=== PATIENT | female | born 1960 | race Caucasian/White ===

== ENCOUNTER 2021-04-15 18:35 | Inpatient (IN) | payer SELFPAY ==
[2021-04-15 18:36] VITALS: BP 89/65; PULSE 85; RESP 20; TEMP 37.3; O2SAT 93; BMI 27.8
--- NOTE | 2021-04-15 18:50 | EKG12_ITS ---
Test Reason : CP Blood Pressure : / mmHG Vent. Rate : 085 BPM Atrial Rate : 085 BPM P-R Int : 168 ms QRS Dur : 076 ms QT Int : 378 ms P-R-T Axes : 054 024 051 degrees QTc Int : 449 ms Normal sinus rhythm Normal ECG Confirmed by LINDA FULLER, KATARINA ([id number]), script editor JO ANN BREWSTER ([id number]) on 04/19/2021 9:44:44 AM Referred By: Michael Siegel Confirmed By:RUSLAN MCKEON MD
--- NOTE | 2021-04-15 19:14 | RAD_ITS ---
STUDY: XR Chest 1 View 04/15/2021 7:14 PM REASON FOR EXAM: Female, 60 years old. CHEST PAIN SOB COMPARISON: None TECHNIQUE: XR Chest 1 View FINDINGS: There is no demonstrated pleural abnormality. There is bilateral infiltrate / atelectasis. Normal heart size. Normal mediastinum. Normal rolando. Prominent appearing increased interstitial lung markings. Normal visualized pulmonary arteries. There is atherosclerotic calcification of the aortic arch with tortuosity. There are diffuse degenerative changes of the visualized thoracic spine. There is degenerative osteoarthritis of the bilateral shoulders. There is no demonstrated abnormality of the visualized soft tissue structures of the upper abdomen. RAD/Chest 1 View (Portable) IMPRESSION: Bilateral pneumonia. Electronically Signed: Gallo Figueredo MD at 19:51 EST , Service support ,
[2021-04-15 19:18] VITALS: BP 117/73; PULSE 78; RESP 23; RESP 24; O2SAT 88; O2SAT 94
[2021-04-15 19:19] VITALS: O2SAT 95
[2021-04-15 19:34] LABS: Absolute Lymphocyte Count 1.16 X10^3/uL (0.83-4.51); Absolute Neutrophil Count 3.4 X10^3/uL (2.0-7.7); Basophil# 0.01 X10^3/uL; Basophil% 0.2 % (0-1); Hematocrit 45.7 % (37-47); Hemoglobin 15.7 g/dL (12.0-15.0); Lymphocyte # 1.16 X10^3/ul (0.83-4.51); Lymphocyte % 23.9 % (19-41); Mean Corp Hgb Conc 34.4 g/dL (32-36); Mean Corpuscular Hgb 29.5 pg (27.0-32.0); Mean Corpuscular Volume 85.9 fL (81-99); Mean Platelet Vol. 9.6 fl (6.2-12.0); Monocyte# 0.21 X10^3/uL; Monocyte% 4.3 % (0-10); NRBC Flagged by Analyzer 0 % (0-5); Neutrophil # 3.44 X10^3/uL (2.7-7.7); Neutrophil % 70.8 % (47-70); POSITIVE MORPHOLOGY YES; Platelet Count 147 K/mm3 (150-450); RBC Distribution Width CV 12.4 % (11.6-14.6); RBC Distribution Width SD 39.1 fl (35.1-43.9); Red Blood Count 5.32 M/mm3 (4.2-5.4); White Blood Count 4.9 K/mm3 (4.4-11.0)
[2021-04-15 19:51] LABS: Anion Gap 7 (5-15); BUN 13 mg/dL (7-18); BUN/Creat Ratio 17.6 RATIO (10-20); Calcium,Total 8.8 mg/dL (8.5-10.1); Chloride 92 mmol/L (98-107); Creatinine, Serum 0.74 mg/dL (0.55-1.02); EST Glomerular Filtration Rate 85 mL/min (>60); Est Glom Filt Rate - Afr Amer 103 mL/min (>60); Estimated Creatinine Clearance 68.94 ml/min; Glucose 238 mg/dL (74-106); Potassium 4.1 mmol/L (3.5-5.1); Sodium Level 127 mmol/L (136-145)
[2021-04-15 20:01] LABS: Differential Indicated SCAN CRITERIA MET
[2021-04-15 20:09] VITALS: BP 119/78; PULSE 78; RESP 38; O2SAT 92
--- NOTE | 2021-04-15 20:14 | CM.ED ---
SW Note Referral Source: Case Find Referral Reason: No Primary Care Physician (PCP) SW reviewed chart and noted that patient has no PCP. SW provided patient with list of [facility] and [facility] Physician List for reference. . No other issues or concerns voiced at this time. SW remains available for any additional needs. Plan: Provided patient with PCP information Cristy MARTIN
--- NOTE | 2021-04-15 20:24 | EDS_ITS ---
HPI History of Present Illness Chief Complaint: Shortness of Breath Informant: patient and spouse/S.O. Onset/Context/Timing Onset: Days Context: gradual Timing: Continuous Current Severity: Moderate Maximum Severity: Moderate Associated Symptoms cough Narrative Narrative: 60-year-old female had Covid-like symptoms started 8 days ago on 1125. Has had testing done at [facility] on 1130 proving that she was Covid positive. She is unvaccinated. Progressively has been feeling worse and now significantly short of breath and hypoxic and came in the emergency department. She denies nausea or vomiting. No hemoptysis. PE Risk Factors: Negative for Cancer, OCP + Smoking + > 35, Prior DVT or PE, Recent immobilization, Recent surgery and Recent travel Prior similar symptoms: No Recent Illness/Hospitalization: No PFSH PFSH Medical History no medical history no medical history Allergy/AdvReac Type Severity Reaction Status Date / Time No Known Allergies Allergy Verified 04/15/21 18:41 Family History no significant family his Surgical History no surgical history no surgical history Social History Smoking Status: Never smoker ROS ROS ED ROS Narrative Cough, fever, myalgias. Review of Systems ROS Unobtainable: Denies due to encephalopathy Constitutional Constitutional ED: Reports chills and fever(s) Eyes Eyes: Denies change in vision ENT ENT ED: Denies ear pain or sore throat Cardiovascular Cardiovascular: Denies chest pain Respiratory/Chest Respiratory/Chest: Reports cough and dyspnea Gastrointestinal Gastrointestinal: Denies abdominal pain, diarrhea, nausea or vomiting Genitourinary Genitourinary ED: Denies dysuria Musculoskeletal Musculoskeletal: Reports arthralgias and myalgias Integumentary Denies rash Neurologic Neurologic: Denies headache(s) Psychiatric Psychiatric: Denies depression Endocrine Endocrinology: Denies polyuria Hematologic/Lymphatic Hematologic/Lymphatic: Denies easy bruising Allergic/Immunologic Allergic/Immunologic ED: Denies urticaria EXAM Physical Exam Narrative Exam Narrative: 60-year-old female vital signs stable except for pulse in the mid 80s on room air. Hypoxic. HEENT exam unremarkable. Neck nontender. Lungs clear to auscultation bilaterally. Heart regular rhythm no murmur rate about 85. Abdomen soft nontender. Moving all 4 extremities. Calves are nontender without edema or cords. Neurologically she is awake and alert. Patient looks ill not septic. Const Vital Signs: 04/15/21 18:36 04/15/21 19:18 04/15/21 19:19 Temperature 99.1 F Temperature Source Temporal Pulse Rate 85 78 Respiratory Rate 20 H 24 H Respiratory Effort Short of Breath Respiratory Depth Shallow Respiratory Pattern Tachypnea Blood Pressure 89/65 L 117/73 Blood Pressure Mean 73 87 Pulse Ox 93 88 Oxygen Delivery Method Room Air Room Air Nasal Cannula Oxygen Flow Rate (L/min) 2 2 04/15/21 20:09 Temperature Temperature Source Pulse Rate 78 Respiratory Rate 38 H Respiratory Effort Respiratory Depth Respiratory Pattern Blood Pressure 119/78 Blood Pressure Mean 91 Pulse Ox 92 Oxygen Delivery Method Nasal Cannula Oxygen Flow Rate (L/min) 2 Positive well nourished and well developed; Negative for obese, cachectic, contractures or unkempt General Appearance ED: well developed and NAD; Negative for unkempt, cachectic, contractures or pallor Nutritional Appearance: Negative for cachectic or obese HEENT Reports moist mucous membranes atraumatic; Negative for trauma or tenderness Eyes PERRL and EOMs intact bilaterally Neck no lymphadenopathy, supple, no meningeal signs and no JVD Resp clear to auscultation bilaterally Auscultation: Negative for rales, rhonchi or wheezes Cardio regular rate, regular rhythm, S1 normal heart sound, S2 normal heart sound and no murmurs GI non-tender, non-distended and no masses Auscultation: normoactive bowel sounds Palpation: soft; Negative for tender or guarding Back/Spine no CVA tenderness and normal to inspection Extremity normal to inspection General Extremety ED: Negative for edema or tenderness General Extremity: Negative for edema Neuro oriented x3 Sensorium / Orientation: alert, oriented to person, oriented to place and oriented to time; Negative for orientation impaired, confused, lethargic or stuporous Motor Exam: strength 5/5 throughout Psych mental status grossly normal Appearance: Negative for unkempt Thought Process: normal thought process Skin no wounds and skin turgor normal General Skin Exam: Negative for jaundice or pallor Lesions: no lesions Rashes: no rashes MDM MDM MDM Narrative Medical decision making narrative: 60-year-old female hypoxic with Covid. She was started on IV Decadron. I spoke with the hospitalist to admit her. She is also hyponatremic on her labs. Lab Data Attestation: I reviewed the patient's lab results. Lab results narrative: CBC shows a white count of 4.9. Hemoglobin 15. Platelets 147. Electrolytes sodium 127. Gap is 7 normal BUN and creatinine. Glucose 238. Labs: Laboratory Results - last 24 hr 04/15/21 04/15/21 19:05 19:05 WBC 4.9 RBC 5.32 Hgb 15.7 H Hct 45.7 MCV 85.9 MCH 29.5 MCHC 34.4 RDW Std Deviation 39.1 RDW Coeff of Christian 12.4 Plt Count 147 L MPV 9.6 Immature Gran % (Auto) 0.800 Neut % (Auto) 70.8 H Lymph % (Auto) 23.9 [place] % (Auto) 4.3 Eos % (Auto) 0.0 Baso % (Auto) 0.2 Absolute Neuts (auto) 3.4 Absolute Lymphs (auto) 1.16 Nucleated RBC % 0 Sodium 127 L Potassium 4.1 Chloride 92 L Carbon Dioxide 28.0 Anion Gap 7 BUN 13 Creatinine 0.74 Estim Creat Clear Calc 68.94 Est GFR (MDRD) Af Amer 103 Est GFR (MDRD) Non-Af 85 BUN/Creatinine Ratio 17.6 Glucose 238 H Calcium 8.8 Radiography Chest X-Ray - ED: 1 View, Read by ED Physician, Read by Radiologist, Right Infiltrate and Left Infiltrate Diagnostic Testing: Clinical Impression(s) from Imaging Studies Chest X-Ray 04/15/21 19:14 IMPRESSION: Bilateral pneumonia. Electronically Signed: Gallo Figueredo MD at 19:51 EST , Service support , Chest x-ray, portable, single view interpreted by myself shows bilateral infiltrates consistent with Covid pneumonitis. Normal cardiac silhouette. Rhythm Strip Rhythm Strip: Sinus Rhythm Rate: 85 Ectopy: None EKG Initial EKG: Attestation: I personally reviewed and interpreted this EKG as follows: Interpretation: Sinus Rhythm and No Acute Injury Pattern Comments: Normal sinus rhythm rate 85 no acute signs of OK nor ischemia. Prior EKG tracings: not available for review Discharge Plan Triage Chief Complaint: Shortness of Breath ED Provider: Camilo Arriaga Dx/Rx/DC Orders Clinical Impression: COVID-19, Hypoxia, Hyponatremia Primary Care Provider: Care Physician,No Primary Referrals: Care Physician,No Primary [Primary Care Provider] - Disposition Disposition: Acute Care Hospital [facility]
[2021-04-15 20:25] LABS: Anisocytosis RARE; Atypical Lymphocyte 1+ %; Platelet Estimate ADEQUATE (ADEQ); Red Cell Morphology N CHROM NORMAL (NORM C&C)
[2021-04-15 20:41] VITALS: BP 123/79; PULSE 87; RESP 20; TEMP 37.2; O2SAT 92
[2021-04-15] MEDS: dexAMETHasone 20 MG/5 ML Vial IV (20:46)
--- NOTE | 2021-04-15 21:01 | HP.PCM.HOS_ITS ---
HPI - General General Date of Admission: 04/15/21 HPI Narrative SOLITARIO VIVEROS, is a 60 F came to ER for shortness of breath generalized body aches, Covid symptoms started 8 days ago on 04/08. Her symptoms started with generalized body aches, abdominal pain which progressed to shortness of breath for 1 week. Patient denies fever. She has mild dry cough. Loss of appetite but retains sense of smell and taste. Denies vomiting, GI bleed, diarrhea. Patient denies past history of smoking, COPD, asthma or other cardiorespiratory illness or comorbidity. She was tested positive at the [facility] on 04/13 and was given prescription for Tessalon and meloxicam. At home she found her pulse ox 81 on room air. In ED, patient was found pulse ox 88% on 2 L of oxygen. Temperature 99.1 ?F. Blood pressure 117/73. Chest x-ray shows bilateral infiltrates. D-dimer ordered. PFS Medical History no medical history Allergy/AdvReac Type Severity Reaction Status Date / Time No Known Allergies Allergy Verified 04/15/21 18:41 Family History no significant family his Surgical History no surgical history Social History Smoking Status: Never smoker ROS ROS Narrative Constitutional: Reports fatigue and weakness, generalized body aches HEENT: Reports systems reviewed and no addt'l complaints, except as documented Respiratory/Chest: No chest pain or pressure. Shortness of breath present. Gastrointestinal: Denies coffee ground emesis, hematemesis or vomiting Genitourinary: Denies burning urination or new urinary tract symptoms Musculoskeletal: Reports joint pain and muscle aches Neurologic: Denies seizure-like activity skin: No ulcer. No rash Endocrinology: Reports systems reviewed and no addt'l complaints, except as documented Hematologic/Lymphatic: Reports systems reviewed and no addt'l complaints, except as documented Rest 12 ROS are negative except as mentioned in HPI Vital Signs Vital Signs Vital Signs: 04/15/21 18:36 04/15/21 19:18 04/15/21 19:19 Temperature 99.1 F Temperature Source Temporal Pulse Rate 85 78 Respiratory Rate 20 H 24 H Respiratory Effort Short of Breath Respiratory Depth Shallow Respiratory Pattern Tachypnea Blood Pressure 89/65 L 117/73 Blood Pressure Mean 73 87 Pulse Ox 93 88 Oxygen Delivery Method Room Air Room Air Nasal Cannula Oxygen Flow Rate (L/min) 2 2 04/15/21 20:09 04/15/21 20:41 Temperature 98.9 F Temperature Source Temporal Pulse Rate 78 87 Respiratory Rate 38 H 20 H Respiratory Effort Respiratory Depth Respiratory Pattern Blood Pressure 119/78 123/79 H Blood Pressure Mean 91 93 Pulse Ox 92 92 Oxygen Delivery Method Nasal Cannula Nasal Cannula Oxygen Flow Rate (L/min) 2 2 Weight Weight: 162 lb Body Mass Index (BMI) 27.8 Physical Exam Narrative General: Alert, Oriented x3, Cooperative HEENT: Atraumatic, PERRLA, EOMI, Normocephalic Oral: No Gingival or Mucosal Lesions/ Ulcerations Neck: Supple, No JVD, Negative Carotid Bruits Lungs: Air entry diminished in bilateral lung bases. Bilateral crepitations. Tachypnea present Cardiovascular: Regular rate, Regular Rhythm, Normal S1, Normal S2, No murmurs Abdomen: Bowel Sounds Present, Soft, Non Tender, Non-Distended : No renal angle tenderness. No suprapubic tenderness. Extremities: No edema, Capillary Refill Less than 3 Seconds Skin: No rashes, No breakdown Musculoskeletal: No Tenderness to Palpation of Joints or Extremities Neurological: Cranial nerves II-XII grossly intact, DTR 2+/4 and Symmetrical Psych/Mental Status: Flat affect Results Lab / Micro Data Result Diagrams: 04/15/21 19:05 04/15/21 19:05 Labs: Laboratory Results - last 24 hr 04/15/21 19:05: WBC 4.9, RBC 5.32, Hgb 15.7 H, Hct 45.7, MCV 85.9, MCH 29.5, MCHC 34.4, RDW Std Deviation 39.1, RDW Coeff of Christian 12.4, Plt Count 147 L, MPV 9.6, Immature Gran % (Auto) 0.800, Neut % (Auto) 70.8 H, Lymph % (Auto) 23.9, [place] % (Auto) 4.3, Eos % (Auto) 0.0, Baso % (Auto) 0.2, Absolute Neuts (auto) 3.4, Absolute Lymphs (auto) 1.16, Nucleated RBC % 0, Differential Comment SEE COMMENT, Atypical Lymphocytes 1+, Platelet Estimate ADEQUATE, RBC Morphology N CHROM, Anisocytosis RARE 04/15/21 19:05: Sodium 127 L, Potassium 4.1, Chloride 92 L, Carbon Dioxide 28.0, Anion Gap 7, BUN 13, Creatinine 0.74, Estim Creat Clear Calc 68.94, Est GFR (MDR D) Af Amer 103, Est GFR (MDRD) Non-Af 85, BUN/Creatinine Ratio 17.6, Glucose 238 H, Calcium 8.8 Rhythm Strip Rhythm Strip: Sinus Rhythm Rate: 85 Ectopy: None Radiology Impression Chest X-Ray 04/15/21 19:14 IMPRESSION: Bilateral pneumonia. Electronically Signed: Gallo Figueredo MD at 19:51 EST , Service support , Assessment & Plan Assessment/Plan (1) COVID-19: PLAN: 1. Bilateral COVID-19 pneumonia with hypoxia: Patient is being admitted on Med[facility] floor. Oxygen therapy to keep pulse ox more than 94%. Started on dexamethasone and remdesivir as patient is within 10 days window. If patient needs airflow, BiPAP or high oxygen requirement, will need ID consult for baricitinib. Inflammatory markers ordered. Modified Wells criteria for PE is 0 but D-dimer is high 1.[address] angiogram chest ordered. 2. hyponatremia and hypochloremia: IV fluid normal sensitive 7/h. Monitor electrolytes tomorrow a.m. 3. Hyperglycemia: Accu-Chek insulin coverage block sliding scale. A1c ordered for tomorrow a.m. VTE prophylaxis: Lovenox 30 mg subcu twice daily. If CT angiogram positive for PE will transition to therapeutic dose of Lovenox. Discontinue if platelet count drops less than 50,000 or hemoglobin less than 8 g% Living will/advanced directive/end of life care: Patient does have living will or advanced directive. Her is power of real estate associate attorney for health. After discussion of benefits/risks procedures involved with full code, DNR CC arrest and DNR CC, the patient opted for full code. Patient does want artificial life support including intubation, tube feed, ventilator and/chest compression, central venous catheter, vasopressor and DC shock if needed Total time spent in [id number] encounter in discussion of advanced directive 16 minutes. Charges/Coding Visit Charges Inpatient E&M: 96381 Init Hosp L3 Procedures Hospitalists Procedures: 77985 Advncd Care Plan 30 Min
[2021-04-15 21:15] LABS: D-Dimer Quantitative (DVT/PE) 1.32 FEU/ug/m (0.27-0.49)
[2021-04-15 21:23] VITALS: BMI 28.3
[2021-04-15 21:26] VITALS: BP 113/74; PULSE 81; RESP 18; TEMP 37.6; O2SAT 93
[2021-04-15 21:35] LABS: Lactic Acid 1.2 mmol/L (0.4-1.9)
[2021-04-15 21:37] LABS: CPK Total, Creatine Kinase 447 U/L (26-192); LDH 601 U/L (84-246); Troponin-I HS 9 pg/mL (3.0-54.0)
[2021-04-15 21:41] LABS: Procalcitonin 0.11 ng/mL (0.00-0.09)
[2021-04-15 21:42] LABS: BNP,B-Type NATRIURETIC PEPTIDE 17.9 pg/mL (0-100)
[2021-04-15 21:50] LABS: AST(SGOT) 53 U/L (15-37); Alanine Aminotransfer ALT/SGPT 35 U/L (13-56); Albumin, Serum 3.2 g/dL (3.2-5.0); Alkaline Phosphatase 58 U/L (45-117); Bilirubin, Direct 0.25 mg/dL (0.00-0.30); Globulin 4.3 g/dL (2.2-4.2); Protein, Total 7.5 g/dL (6.4-8.2)
--- NOTE | 2021-04-15 22:00 | CT_ITS ---
STUDY: CTA CHEST REASON FOR EXAM: Female, 60 years old. R/O PE, Covid positive RADIATION DOSAGE (If Supplied By Facility): CTDIvol = ( 11.80 ) mGy, DLP = ( 426.17 ) mGycm TECHNIQUE: The examination was performed with the intravenous administration of IV 100mL Isovue-370. Post-processing of the angiographic images was performed, with multiplanar reformation and 3D reconstruction. Individualized dose optimization techniques were used for this CT. COMPARISON: Concurrent chest radiograph FINDINGS: Normal enhancement of the main pulmonary artery and right and left pulmonary arteries. Normal enhancement of the bilateral peripheral pulmonary arteries. There is no demonstrated pulmonary embolism. Normal thoracic aorta and visualized great vessels. There is no demonstrated aortic dissection. Normal heart and pericardium. Normal mediastinum. Normal hilar regions. Normal visualized trachea and bronchi. The lungs are well expanded. Extensive groundglass opacities throughout both lungs. Normal pleura. Normal chest wall structures. There are degenerative changes of thoracic spine. Left renal cyst. CT/CTA Chest W/WO Contrast IMPRESSION: Multifocal pneumonia. No finding of pulmonary embolism or arterial dissection. Electronically Signed: Bryson Purvis MD at 0:39 EST Tel , Service support ,
[2021-04-15 22:11] LABS: Probe Check PASS
[2021-04-15 22:54] LABS: Fibrinogen 550 mg/dl (203-444)
[2021-04-15 22:55] LABS: International Normalized Ratio 1.1; Prothrombin Time (Protime)PT. 13.5 SECONDS (11.7-14.9)
[2021-04-15] MEDS: 0.9% Normal Saline 1,000 ML 75 ML IV (23:05)
[2021-04-15] MEDS: 0.9% Saline Lock 10 ML Syringe IV (23:05)
[2021-04-15] MEDS: Enoxaparin 30 MG/0.3 ML Syringe SC (23:08)
[2021-04-15] MEDS: MELATONIN 3 MG TABLET PO (23:13)
[2021-04-15] MEDS: guaiFENesin 1,200 MG Tablet 1200 MG PO (23:13)
[2021-04-16] VITALS (12 sets, daily range): BP systolic 117–128; BP diastolic 71–80; PULSE 63–88; RESP 18–20; TEMP 36.4–36.9; O2SAT 91–95
--- NOTE | 2021-04-16 02:32 | PCS.PANDOC ---
PANDEMIC DOCUMENTATION INITIATED: Date: 12/28/2020 Time: 190
[2021-04-16 06:57] LABS: Absolute Lymphocyte Count 0.65 X10^3/uL (0.83-4.51); Basophil# 0.01 X10^3/uL; Basophil% 0.4 % (0-1); Hematocrit 45.9 % (37-47); Hemoglobin 15.2 g/dL (12.0-15.0); Lymphocyte # 0.65 X10^3/ul (0.83-4.51); Mean Corp Hgb Conc 33.1 g/dL (32-36); Mean Corpuscular Hgb 28.6 pg (27.0-32.0); Mean Corpuscular Volume 86.4 fL (81-99); Mean Platelet Vol. 9.6 fl (6.2-12.0); Monocyte# 0.11 X10^3/uL; Monocyte% 3.9 % (0-10); NRBC Flagged by Analyzer 0 % (0-5); Neutrophil # 2.02 X10^3/uL (2.7-7.7); Neutrophil % 71.6 % (47-70); POSITIVE MORPHOLOGY YES; Platelet Count 141 K/mm3 (150-450); RBC Distribution Width CV 12.3 % (11.6-14.6); RBC Distribution Width SD 39.2 fl (35.1-43.9); Red Blood Count 5.31 M/mm3 (4.2-5.4); White Blood Count 2.8 K/mm3 (4.4-11.0)
[2021-04-16 07:04] LABS: Differential Indicated SCAN CRITERIA MET
[2021-04-16 07:12] LABS: Atypical Lymphocyte 1+ %
--- NOTE | 2021-04-16 07:22 | PCM.PN.HOSP ---
Subjective Subjective Patient is a 60-year-old female unvaccinated against COVID-19 who presented with progressive shortness of breath. Patient symptoms started on 04/08/2021. Was found to be significantly hypoxic with oxygen saturation at 81% on admission. Objective Data Objective Data Vital Signs: Vital Signs Temp Pulse Resp BP Pulse Ox 97.6 F L 63 20 H 128/78 H 94 04/16/21 03:30 04/16/21 04:00 04/16/21 03:30 04/16/21 03:30 04/16/21 03:30 Oxygen Flow Rate (L/min) 3 Oxygen Delivery Method Nasal Cannula Weight: 74.7 kg Body Mass Index (BMI) 28.3 Intake & Output: Intake and Output for Last 24 Hours 04/14/21 04/15/21 04/16/21 23:59 23:59 23:59 Intake Total 250 / 250 Balance 250 / 250 Lab / Micro Data Result Diagrams: 04/16/21 06:24 04/16/21 06:24 Labs: Laboratory Results - last 24 hr 04/15/21 19:05: WBC 4.9, RBC 5.32, Hgb 15.7 H, Hct 45.7, MCV 85.9, MCH 29.5, MCHC 34.4, RDW Std Deviation 39.1, RDW Coeff of Christian 12.4, Plt Count 147 L, MPV 9.6, Immature Gran % (Auto) 0.800, Neut % (Auto) 70.8 H, Lymph % (Auto) 23.9, [place] % (Auto) 4.3, Eos % (Auto) 0.0, Baso % (Auto) 0.2, Absolute Neuts (auto) 3.4, Absolute Lymphs (auto) 1.16, Nucleated RBC % 0, Differential Comment SEE COMMENT, Atypical Lymphocytes 1+, Platelet Estimate ADEQUATE, RBC Morphology N CHROM, Anisocytosis RARE 04/15/21 19:05: Sodium 127 L, Potassium 4.1, Chloride 92 L, Carbon Dioxide 28.0, Anion Gap 7, BUN 13, Creatinine 0.74, Estim Creat Clear Calc 68.94, Est GFR (MDRD) Af Amer 103, Est GFR (MDRD) Non-Af 85, BUN/Creatinine Ratio 17.6, Glucose 238 H, Calcium 8.8 04/15/21 19:05: D-Dimer Quant (PE/DVT) 1.32 H* 04/15/21 19:05: Lactate Dehydrogenase 601 H, Total Creatine Kinase 447 H, Troponin I High Sens 9, C-React Prot Ext Range 99.70 H 04/15/21 19:05: Lactic Acid 1.2 04/15/21 19:05: B-Natriuretic Peptide 17.9 04/15/21 19:05: Procalcitonin 0.11 H 04/15/21 19:05: Total Bilirubin 0.70, Direct Bilirubin 0.25, AST 53 H, ALT 35, Alkaline Phosphatase 58, Total Protein 7.5, Albumin 3.2, Globulin 4.3 H 04/15/21 20:45: COVID-19 ([place]) Positive 04/15/21 22:28: PT 13.5, INR 1.1, Fibrinogen 550 H 04/16/21 06:24: WBC 2.8 L, RBC 5.31, Hgb 15.2 H, Hct 45.9, MCV 86.4, MCH 28.6, MCHC 33.1, RDW Std Deviation 39.2, RDW Coeff of Christian 12.3, Plt Count 141 L, MPV 9.6, Immature Gran % (Auto) 1.100 H, Neut % (Auto) 71.6 H, Lymph % (Auto) 23.0, [place] % (Auto) 3.9, Eos % (Auto) 0.0, Baso % (Auto) 0.4, Absolute Neuts (auto) 2.0, Absolute Lymphs (auto) 0.65 L, Nucleated RBC % 0, Atypical Lymphocytes 1+ Radiography Diagnostic Testing: Radiology Impression Chest X-Ray 04/15/21 19:14 IMPRESSION: Bilateral pneumonia. Electronically Signed: Gallo Figueredo MD at 19:51 EST , Service support , Chest CTA 04/15/21 22:00 IMPRESSION: Multifocal pneumonia. No finding of pulmonary embolism or arterial dissection. Electronically Signed: Bryson Purvis MD at 0:39 EST Tel , Service support , Rhythm Strip Rhythm Strip: Sinus Rhythm Rate: 85 Ectopy: None Physical Exam Narrative GENERAL: Dyspneic at rest HEENT: Atraumatic; EYES; Anicteric, Normal Conjunctiva NECK; supple, normal thyroid, RESPIRATORY: Diminished to auscultation CARDIOVASCULAR: Regular S1 S2, GI: soft, normoactive bowel sounds, : No Renal angle tenderness; EXTREMITIES: No edema, no clubbing, MUSCULOSKELETAL: no muscle waisting NEURO: Awake; no lateralizing signs. SKIN: No Rash PSYCH; Flat affect Assessment & Plan Assessment/Plan (1) COVID-19: PLAN: Patient is a 60-year-old female unvaccinated against COVID-19 who presented with progressive shortness of breath. Patient symptoms started on 04/08/2021. Was found to be significantly hypoxic with oxygen saturation at 81% on admission. 1. Acute hypoxic respiratory failure ?Secondary to SARS-CoV-2 pneumonia. Patient has been admitted to regular nursing floor where she is currently being managed with dexamethasone and remdesivir in addition to supplemental oxygen. Patient had elevated D-dimer on admission CT of the chest obtained demonstrated multifocal pneumonia 2. Hypochloremic hyponatremia ?Thought to be secondary to decreased oral intake as a result of above. On saline with subsequent monitoring of electrolyte 3. Hypokalemia ?Corrected per protocol repeat labs ordered 4. Hyperglycemia ?Noted known diabetic hemoglobin A1c ordered. With patient being on Decadron she was placed on Accu-Cheks before meals and at bedtime with sliding scale coverage 5. DVT prophylaxis ?Lovenox Charges/Coding Visit Charges Inpatient E&M: 37228 Subs Hosp L3
[2021-04-16 07:34] LABS: ALB/GLOB Ratio 0.6 RATIO (0.9-2.4); AST(SGOT) 43 U/L (15-37); Alanine Aminotransfer ALT/SGPT 30 U/L (13-56); Albumin, Serum 2.4 g/dL (3.2-5.0); Alkaline Phosphatase 55 U/L (45-117); Anion Gap 8 (5-15); BUN 14 mg/dL (7-18); BUN/Creat Ratio 20.1 RATIO (10-20); Calcium,Total 8.1 mg/dL (8.5-10.1); Chloride 99 mmol/L (98-107); EST Glomerular Filtration Rate 91 mL/min (>60); Est Glom Filt Rate - Afr Amer 110 mL/min (>60); Estimated Creatinine Clearance 72.88 ml/min; Glucose 336 mg/dL (74-106); Magnesium 2.5 mg/dL (1.6-2.6); Potassium 4.5 mmol/L (3.5-5.1); Protein, Total 6.4 g/dL (6.4-8.2); Sodium Level 132 mmol/L (136-145)
[2021-04-16] MEDS: Enoxaparin 30 MG/0.3 ML Syringe SC ×2 (10:47→21:09)
[2021-04-16] MEDS: dexAMETHasone 4 MG Tablet 6 MG PO (10:47)
[2021-04-16] MEDS: guaiFENesin 1,200 MG Tablet 1200 MG PO ×2 (10:48→21:10)
[2021-04-16 10:54] LABS: Hemoglobin A1c 11.6 % (3.8-5.6)
--- NOTE | 2021-04-16 14:25 | CASEMGMT ---
KASSANDRA ROCHA Assessment: Face to Face with pt for initial transition planning/care coordination assessment. KASSANDRA ROCHA introduced self and role at [facility], pt voices understanding and consents to assessment. Pt is A/O x4 and answers all questions appropriately at this time. Pt lying in bed with O2 on in no distress. Care providers, pharmacy, and demographics verified/updated. Admitting Dx: acute hypoxic respiratory failure secondary to COVID PCP:Pt denies having PCP. She states she will start using [facility]. List given to pt in ER. Specialists:Pt denies. [facility]erred [facility]acy: [facility] Insurance: [employer] Prescription Benefit: no LW/HPOA: Pt states she has a LW/DPOA and it is her Dedrick Urbina. She is aware that this is not on file at [facility] and she may bring in to be scanned into her chart. LNOK: Dedrick Urbina, Living Arrangements: Pt lives with in a single story house with no steps to enter. Pt reports she is I in ADL's and denies concerns at home. 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 Transportation: Pt drives self and denies concerns with transportation. DME/HHC/SNF: Pt has a pulse ox at home. Denies hx of HHC or SNF stays. Pt was first tested at [facility]. She reports her does not have COVID. She is unable to quarantine from her d/t only having one useable bedroom and bathroom d/t her business. Pt denies preference of DME company should she need O2. She is aware of cost through [employer]. Pt states no concerns with going home at time of dc. Pt states no further concerns/needs. CM to follow. Advised pt to ask CM if any further question/concerns/needs arise, voices understanding. Pt Goal: Home Plan: Home
[2021-04-16] MEDS: 0.9% Saline Lock 10 ML Syringe IV (15:09)
[2021-04-16] MEDS: MELATONIN 3 MG TABLET PO (23:17)
[2021-04-17] VITALS (11 sets, daily range): BP systolic 107–122; BP diastolic 63–79; PULSE 64–83; RESP 14–20; TEMP 36.4–36.7; O2SAT 90–93
[2021-04-17 06:29] LABS: Absolute Lymphocyte Count 1.88 X10^3/uL (0.83-4.51); Absolute Neutrophil Count 5.9 X10^3/uL (2.0-7.7); Basophil# 0.05 X10^3/uL; Basophil% 0.6 % (0-1); Eosinophil# 0.06 X10^3/uL; Eosinophils% 0.7 % (0-5); Hematocrit 45.9 % (37-47); Hemoglobin 15.3 g/dL (12.0-15.0); Lymphocyte # 1.88 X10^3/ul (0.83-4.51); Lymphocyte % 21.8 % (19-41); Mean Corp Hgb Conc 33.3 g/dL (32-36); Mean Corpuscular Hgb 28.9 pg (27.0-32.0); Mean Corpuscular Volume 86.6 fL (81-99); Mean Platelet Vol. 9.6 fl (6.2-12.0); NRBC Flagged by Analyzer 0 % (0-5); Neutrophil # 5.92 X10^3/uL (2.7-7.7); Neutrophil % 68.6 % (47-70); POSITIVE MORPHOLOGY YES; Platelet Count 211 K/mm3 (150-450); RBC Distribution Width CV 12.3 % (11.6-14.6); RBC Distribution Width SD 39.3 fl (35.1-43.9); White Blood Count 8.6 K/mm3 (4.4-11.0)
[2021-04-17 06:34] LABS: Differential Indicated SCAN CRITERIA MET
--- NOTE | 2021-04-17 06:48 | PN.HOSP_ITS ---
Subjective Subjective Patient seen complains of feeling tired Objective Data Objective Data Vital Signs: Vital Signs Temp Pulse Resp BP Pulse Ox 98.1 F 66 18 107/63 92 04/17/21 02:47 04/17/21 04:30 04/17/21 02:47 04/17/21 02:47 04/17/21 02:47 Oxygen Flow Rate (L/min) 4 Oxygen Delivery Method Nasal Cannula Weight: 74.7 kg Body Mass Index (BMI) 28.3 Intake & Output: Intake and Output for Last 24 Hours 04/15/21 04/16/21 04/17/21 23:59 23:59 23:59 Intake Total 2400 / 2700 300 / 300 Balance 2400 / 2700 300 / 300 Lab / Micro Data Result Diagrams: 04/17/21 05:30 04/17/21 05:30 Labs: Laboratory Results - last 24 hr 04/16/21 06:24: WBC 2.8 L, RBC 5.31, Hgb 15.2 H, Hct 45.9, MCV 86.4, MCH 28.6, MCHC 33.1, RDW Std Deviation 39.2, RDW Coeff of Christian 12.3, Plt Count 141 L, MPV 9.6, Immature Gran % (Auto) 1.100 H, Neut % (Auto) 71.6 H, Lymph % (Auto) 23.0, [place] % (Auto) 3.9, Eos % (Auto) 0.0, Baso % (Auto) 0.4, Absolute Neuts (auto) 2.0, Absolute Lymphs (auto) 0.65 L, Nucleated RBC % 0, Atypical Lymphocytes 1+ 04/16/21 06:24: Sodium 132 L, Potassium 4.5, Chloride 99, Carbon Dioxide 25.0, Anion Gap 8, BUN 14, Creatinine 0.70, Estim Creat Clear Calc 72.88, Est GFR (MDRD) Af Amer 110, Est GFR (MDRD) Non-Af 91, BUN/Creatinine Ratio 20.1 H, Glucose 336 H, Calcium 8.1 L, Magnesium 2.5, Total Bilirubin 0.50, AST 43 H, ALT 30, Alkaline Phosphatase 55, Total Protein 6.4, Albumin 2.4 L, Globulin 4.0, Alb umin/Globulin Ratio 0.6 L 04/16/21 06:24: Hemoglobin A1c 11.6 H 04/17/21 05:30: WBC 8.6, RBC 5.30, Hgb 15.3 H, Hct 45.9, MCV 86.6, MCH 28.9, MCHC 33.3, RDW Std Deviation 39.3, RDW Coeff of Christian 12.3, Plt Count 211, MPV 9.6, Immature Gran % (Auto) 1.300 H, Neut % (Auto) 68.6, Lymph % (Auto) 21.8, [place] % (Auto) 7.0, Eos % (Auto) 0.7, Baso % (Auto) 0.6, Absolute Neuts (auto) 5.9, Absolute Lymphs (auto) 1.88, Nucleated RBC % 0 Micro: Microbiology 04/16/21 10:15 Sputum, Expectorated/Coughed Gram Stain - Final 04/16/21 06:10 Urine, Clean Catch Legionella Antigen - Final 04/16/21 06:10 Urine, Clean Catch Streptococcus pneumoniae Antigen (M - Final Rhythm Strip Rhythm Strip: Sinus Rhythm Rate: 85 Ectopy: None Physical Exam Narrative GENERAL: Dyspneic at rest HEENT: Atraumatic; EYES; Anicteric, Normal Conjunctiva NECK; supple, normal thyroid, RESPIRATORY: Diminished to auscultation CARDIOVASCULAR: Regular S1 S2, GI: soft, normoactive bowel sounds, : No Renal angle tenderness; EXTREMITIES: No edema, no clubbing, MUSCULOSKELETAL: no muscle waisting NEURO: Awake; no lateralizing signs. SKIN: No Rash PSYCH; Flat affect Assessment & Plan Assessment/Plan (1) COVID-19: PLAN: Patient is a 60-year-old female unvaccinated against COVID-19 who presented with progressive shortness of breath. Patient symptoms started on 04/08/2021. Was found to be significantly hypoxic with oxygen saturation at 81% on admission. 1. Acute hypoxic respiratory failure ?Secondary to SARS-CoV-2 pneumonia. Patient has been admitted to regular nursing floor where she is currently being managed with dexamethasone and remdesivir in addition to supplemental oxygen. Patient had elevated D-dimer on admission CT of the chest obtained demonstrated multifocal pneumonia ?04/17/2021; remains on supplemental oxygen patient complains of feeling tired 2. Hypochloremic hyponatremia ?Thought to be secondary to decreased oral intake as a result of above. On saline with subsequent monitoring of electrolyte 3. Hypokalemia ?Corrected per protocol repeat labs ordered 4. Hyperglycemia ?Noted known diabetic hemoglobin A1c ordered. With patient being on Decadron she was placed on Accu-Cheks before meals and at bedtime with sliding scale coverage 5. DVT prophylaxis ?Lovenox Charges/Coding Visit Charges Inpatient E&M: 99862 Subs Hosp L2
[2021-04-17 06:57] LABS: Differential Comment SCANNED
[2021-04-17 07:00] LABS: ALB/GLOB Ratio 0.7 RATIO (0.9-2.4); AST(SGOT) 41 U/L (15-37); Alanine Aminotransfer ALT/SGPT 37 U/L (13-56); Albumin, Serum 2.7 g/dL (3.2-5.0); Alkaline Phosphatase 57 U/L (45-117); Anion Gap 10 (5-15); BUN 20 mg/dL (7-18); BUN/Creat Ratio 29.4 RATIO (10-20); Calcium,Total 8.5 mg/dL (8.5-10.1); Chloride 102 mmol/L (98-107); Creatinine, Serum 0.68 mg/dL (0.55-1.02); EST Glomerular Filtration Rate 93 mL/min (>60); Est Glom Filt Rate - Afr Amer 113 mL/min (>60); Estimated Creatinine Clearance 75.02 ml/min; Globulin 3.9 g/dL (2.2-4.2); Glucose 307 mg/dL (74-106); Magnesium 2.5 mg/dL (1.6-2.6); Potassium 4.3 mmol/L (3.5-5.1); Protein, Total 6.6 g/dL (6.4-8.2); Sodium Level 136 mmol/L (136-145)
[2021-04-17] MEDS: Enoxaparin 30 MG/0.3 ML Syringe SC ×2 (09:43→21:17)
[2021-04-17] MEDS: guaiFENesin 1,200 MG Tablet 1200 MG PO ×2 (09:43→21:18)
[2021-04-17] MEDS: dexAMETHasone 4 MG Tablet 6 MG PO (09:43)
[2021-04-17] MEDS: MELATONIN 3 MG TABLET PO (21:18)
[2021-04-17] MEDS: 0.9% Saline Lock 10 ML Syringe IV (21:18)
[2021-04-17] MEDS: Acetaminophen 325 MG Tablet 650 MG PO (22:02)
[2021-04-17] MEDS: Albuterol 2.5 MG/3 ML VIAL.NEB. INHALATION (22:32)
[2021-04-18] VITALS (13 sets, daily range): BP systolic 99–125; BP diastolic 66–88; PULSE 58–95; RESP 16–20; TEMP 36.6–37.1; O2SAT 91–99
[2021-04-18 07:12] LABS: Absolute Lymphocyte Count 1.54 X10^3/uL (0.83-4.51); Absolute Neutrophil Count 4.3 X10^3/uL (2.0-7.7); Basophil# 0.01 X10^3/uL; Basophil% 0.2 % (0-1); Eosinophil# 0.01 X10^3/uL; Eosinophils% 0.2 % (0-5); Hematocrit 40.7 % (37-47); Hemoglobin 13.6 g/dL (12.0-15.0); Lymphocyte # 1.54 X10^3/ul (0.83-4.51); Lymphocyte % 24.1 % (19-41); Mean Corp Hgb Conc 33.4 g/dL (32-36); Mean Corpuscular Hgb 28.9 pg (27.0-32.0); Mean Corpuscular Volume 86.6 fL (81-99); Mean Platelet Vol. 9.3 fl (6.2-12.0); Monocyte# 0.46 X10^3/uL; Monocyte% 7.2 % (0-10); NRBC Flagged by Analyzer 0 % (0-5); Neutrophil # 4.34 X10^3/uL (2.7-7.7); Neutrophil % 67.7 % (47-70); POSITIVE MORPHOLOGY YES; Platelet Count 206 K/mm3 (150-450); RBC Distribution Width CV 12.5 % (11.6-14.6); RBC Distribution Width SD 39.4 fl (35.1-43.9); White Blood Count 6.4 K/mm3 (4.4-11.0)
--- NOTE | 2021-04-18 07:28 | PCM.PN.HOSP ---
Subjective Subjective Patient oxygen requirement increasing currently on 9 L/min flow with oxygen saturation in the low 90s Objective Data Objective Data Vital Signs: Vital Signs Temp Pulse Resp BP Pulse Ox 97.8 F 84 16 117/70 93 04/18/21 04:03 04/18/21 04:31 04/18/21 04:03 04/18/21 04:03 04/18/21 07:22 Oxygen Flow Rate (L/min) 9 Oxygen Delivery Method Nasal Cannula Weight: 74.7 kg Body Mass Index (BMI) 28.3 Intake & Output: Intake and Output for Last 24 Hours 04/16/21 04/17/21 04/18/21 23:59 23:59 23:59 Intake Total 2400 / 2700 990 / 990 Balance 2400 / 2700 990 / 990 Lab / Micro Data Result Diagrams: 04/18/21 06:28 04/18/21 06:28 Micro: Microbiology 04/16/21 10:15 Sputum, Expectorated/Coughed Gram Stain - Final 04/16/21 10:15 Sputum, Expectorated/Coughed Respiratory Culture - Preliminary Appears to be normal respiratory roshan. Further studies to follow. 04/16/21 06:10 Urine, Clean Catch Legionella Antigen - Final 04/16/21 06:10 Urine, Clean Catch Streptococcus pneumoniae Antigen (M - Final Rhythm Strip Rhythm Strip: Sinus Rhythm Rate: 85 Ectopy: None Physical Exam Narrative GENERAL: Cooperative HEENT: Atraumatic; EYES; Anicteric, Normal Conjunctiva NECK; supple, normal thyroid, RESPIRATORY: Diminished to auscultation CARDIOVASCULAR: Regular S1 S2, GI: soft, normoactive bowel sounds, : No Renal angle tenderness; EXTREMITIES: No edema, no clubbing, MUSCULOSKELETAL: no muscle waisting NEURO: Awake; no lateralizing signs. SKIN: No Rash PSYCH; Flat affect Assessment & Plan Assessment/Plan (1) COVID-19: PLAN: Patient is a 60-year-old female unvaccinated against COVID-19 who presented with progressive shortness of breath. Patient symptoms started on 04/08/2021. Was found to be significantly hypoxic with oxygen saturation at 81% on admission. 1. Acute hypoxic respiratory failure ?Secondary to SARS-CoV-2 pneumonia. Patient has been admitted to regular nursing floor where she is currently being managed with dexamethasone and remdesivir in addition to supplemental oxygen. Patient had elevated D-dimer on admission CT of the chest obtained demonstrated multifocal pneumonia ?04/17/2021; remains on supplemental oxygen patient complains of feeling tired -04/18/2021;Patient oxygen requirement increasing currently on 9 L/min flow with oxygen saturation in the low 90s 2. Hypochloremic hyponatremia ?Thought to be secondary to decreased oral intake as a result of above. On saline with subsequent monitoring of electrolyte 3. Hypokalemia ?Corrected per protocol repeat labs ordered 4. Hyperglycemia ?Noted known diabetic hemoglobin A1c ordered. With patient being on Decadron she was placed on Accu-Cheks before meals and at bedtime with sliding scale coverage 5. DVT prophylaxis ?Lovenox Charges/Coding Visit Charges Inpatient E&M: 57092 Subs Hosp L2
[2021-04-18 07:42] LABS: Differential Indicated SCAN CRITERIA MET
[2021-04-18 07:52] LABS: ALB/GLOB Ratio 0.6 RATIO (0.9-2.4); AST(SGOT) 28 U/L (15-37); Alanine Aminotransfer ALT/SGPT 30 U/L (13-56); Albumin, Serum 2.2 g/dL (3.2-5.0); Alkaline Phosphatase 50 U/L (45-117); Anion Gap 7 (5-15); BUN 20 mg/dL (7-18); BUN/Creat Ratio 36.1 RATIO (10-20); Calcium,Total 8.1 mg/dL (8.5-10.1); Chloride 104 mmol/L (98-107); Creatinine, Serum 0.55 mg/dL (0.55-1.02); EST Glomerular Filtration Rate 118 mL/min (>60); Est Glom Filt Rate - Afr Amer 143 mL/min (>60); Estimated Creatinine Clearance 92.76 ml/min; Globulin 3.4 g/dL (2.2-4.2); Glucose 292 mg/dL (74-106); Potassium 4.6 mmol/L (3.5-5.1); Protein, Total 5.6 g/dL (6.4-8.2); Sodium Level 137 mmol/L (136-145)
[2021-04-18 09:03] LABS: Differential Comment SCANNED
[2021-04-18 09:04] LABS: Reactive Lymphocyte 1+
[2021-04-18] MEDS: Enoxaparin 30 MG/0.3 ML Syringe SC ×2 (09:07→22:32)
[2021-04-18] MEDS: dexAMETHasone 4 MG Tablet 6 MG PO (09:07)
[2021-04-18] MEDS: guaiFENesin 1,200 MG Tablet 1200 MG PO ×2 (09:08→22:32)
[2021-04-18] MEDS: MELATONIN 3 MG TABLET PO (22:32)
[2021-04-18] MEDS: Acetaminophen 325 MG Tablet 650 MG PO (22:32)
[2021-04-18] MEDS: 0.9% Saline Lock 10 ML Syringe IV (22:33)
[2021-04-19] VITALS (11 sets, daily range): BP systolic 133–144; BP diastolic 74–87; PULSE 54–74; RESP 18–20; TEMP 36.6–36.9; O2SAT 92–98
[2021-04-19 06:24] LABS: Absolute Lymphocyte Count 1.25 X10^3/uL (0.83-4.51); Basophil# 0.02 X10^3/uL; Basophil% 0.4 % (0-1); Hematocrit 42.3 % (37-47); Hemoglobin 13.9 g/dL (12.0-15.0); Lymphocyte # 1.25 X10^3/ul (0.83-4.51); Mean Corp Hgb Conc 32.9 g/dL (32-36); Mean Corpuscular Hgb 28.4 pg (27.0-32.0); Mean Corpuscular Volume 86.3 fL (81-99); Mean Platelet Vol. 9.2 fl (6.2-12.0); Monocyte# 0.42 X10^3/uL; Monocyte% 7.4 % (0-10); NRBC Flagged by Analyzer 0 % (0-5); Neutrophil # 3.95 X10^3/uL (2.7-7.7); Neutrophil % 69.3 % (47-70); POSITIVE MORPHOLOGY YES; Platelet Count 236 K/mm3 (150-450); RBC Distribution Width CV 12.1 % (11.6-14.6); RBC Distribution Width SD 38.5 fl (35.1-43.9); White Blood Count 5.7 K/mm3 (4.4-11.0)
[2021-04-19 06:41] LABS: Differential Indicated SCAN CRITERIA MET
[2021-04-19 07:36] LABS: ALB/GLOB Ratio 0.7 RATIO (0.9-2.4); AST(SGOT) 24 U/L (15-37); Alanine Aminotransfer ALT/SGPT 30 U/L (13-56); Albumin, Serum 2.3 g/dL (3.2-5.0); Alkaline Phosphatase 52 U/L (45-117); Anion Gap 6 (5-15); BUN 19 mg/dL (7-18); BUN/Creat Ratio 33.6 RATIO (10-20); Calcium,Total 8.3 mg/dL (8.5-10.1); Chloride 105 mmol/L (98-107); Creatinine, Serum 0.56 mg/dL (0.55-1.02); EST Glomerular Filtration Rate 116 mL/min (>60); Est Glom Filt Rate - Afr Amer 140 mL/min (>60); Globulin 3.3 g/dL (2.2-4.2); Glucose 281 mg/dL (74-106); Potassium 4.4 mmol/L (3.5-5.1); Protein, Total 5.6 g/dL (6.4-8.2); Sodium Level 138 mmol/L (136-145)
[2021-04-19] MEDS: Enoxaparin 30 MG/0.3 ML Syringe SC ×2 (10:06→21:51)
[2021-04-19] MEDS: dexAMETHasone 4 MG Tablet 6 MG PO (10:08)
[2021-04-19] MEDS: guaiFENesin 1,200 MG Tablet 1200 MG PO ×2 (10:08→21:52)
--- NOTE | 2021-04-19 11:47 | PCM.PN.HOSP ---
Subjective Subjective Follow-up on acute respiratory failure/COVID-19 pneumonia: Patient was seen and examined. She is currently on 8L oxygen. Denies any fever or chills. Objective Data Objective Data Vital Signs: Vital Signs Temp Pulse Resp BP Pulse Ox 98.3 F 72 18 133/75 H 92 04/19/21 09:54 04/19/21 09:54 04/19/21 09:59 04/19/21 09:54 04/19/21 09:54 Oxygen Flow Rate (L/min) 8 Oxygen Delivery Method High Flow Weight: 74.7 kg Body Mass Index (BMI) 28.3 Intake & Output: Intake and Output for Last 24 Hours 04/17/21 04/18/21 04/19/21 23:59 23:59 23:59 Intake Total 990 / 990 1080 / 1080 750 / 750 Output Total 400 / 400 Balance 990 / 990 680 / 680 750 / 750 Lab / Micro Data Result Diagrams: 04/19/21 05:55 04/19/21 05:55 Labs: Laboratory Results - last 24 hr 04/19/21 05:55: WBC 5.7, RBC 4.90, Hgb 13.9, Hct 42.3, MCV 86.3, MCH 28.4, MCHC 32.9, RDW Std Deviation 38.5, RDW Coeff of Christian 12.1, Plt Count 236, MPV 9.2, Immature Gran % (Auto) 0.900, Neut % (Auto) 69.3, Lymph % (Auto) 22.0, [place] % (Auto) 7.4, Eos % (Auto) 0.0, Baso % (Auto) 0.4, Absolute Neuts (auto) 4.0, Absolute Lymphs (auto) 1.25, Nucleated RBC % 0 04/19/21 05:55: Sodium 138, Potassium 4.4, Chloride 105, Carbon Dioxide 27.0, Anion Gap 6, BUN 19 H, Creatinine 0.56, Estim Creat Clear Calc 91.10, Est GFR (MDRD) Af Amer 140, Est GFR (MDRD) Non-Af 116, BUN/Creatinine Ratio 33.6 H, Glucose 281 H, Calcium 8.3 L, Total Bilirubin 0.40, AST 24, ALT 30, Alkaline Phosphatase 52, Total Protein 5.6 L, Albumin 2.3 L, Globulin 3.3, Albumin/Globulin Ratio 0.7 L Micro: Microbiology 04/16/21 10:15 Sputum, Expectorated/Coughed Gram Stain - Final 04/16/21 10:15 Sputum, Expectorated/Coughed Respiratory Culture - Preliminary Beta strep non A Staphylococcus aureus 04/15/21 22:28 Blood Culture (Wb) - Anticubital Left Blood Culture - Preliminary No growth in 48 hours. 04/15/21 19:05 Blood Culture (Wb) - Anticubital Right Blood Culture - Preliminary No growth in 48 hours. 04/16/21 06:10 Urine, Clean Catch Legionella Antigen - Final 04/16/21 06:10 Urine, Clean Catch Streptococcus pneumoniae Antigen (M - Final Rhythm Strip Rhythm Strip: Sinus Rhythm Rate: 85 Ectopy: None Assessment & Plan Assessment/Plan (1) COVID-19: (2) Hypoxia: PLAN: 1. Acute hypoxic respiratory failure secondary to acute COVID-19 pneumonia Currently on 8 L of oxygen Continue remdesivir, dexamethasone, breathing treatment Continue to wean off oxygen 2. Hyponatremia/hypokalemia, resolved 3. Type II DM, HbA1c is 11.6, will start on Lantus 20 units nightly, Continue with insulin sliding scale blood glucose checks Charges/Coding Visit Charges Inpatient E&M: 61764 Subs Hosp L3
[2021-04-19] MEDS: MELATONIN 3 MG TABLET PO (21:52)
[2021-04-19] MEDS: Acetaminophen 325 MG Tablet 650 MG PO (21:58)
[2021-04-20] VITALS (8 sets, daily range): BP systolic 111–131; BP diastolic 74–78; PULSE 57–77; RESP 18–22; TEMP 36.6–36.8; O2SAT 90–99
[2021-04-20 01:01] LABS: Bedside Glucose 303 mg/dL (70-110)
[2021-04-20 07:54] LABS: Absolute Lymphocyte Count 1.33 X10^3/uL (0.83-4.51); Absolute Neutrophil Count 5.3 X10^3/uL (2.0-7.7); Basophil# 0.02 X10^3/uL; Basophil% 0.3 % (0-1); Eosinophil# 0.03 X10^3/uL; Eosinophils% 0.4 % (0-5); Hematocrit 42.5 % (37-47); Hemoglobin 14.3 g/dL (12.0-15.0); Lymphocyte # 1.33 X10^3/ul (0.83-4.51); Lymphocyte % 18.4 % (19-41); Mean Corp Hgb Conc 33.6 g/dL (32-36); Mean Corpuscular Hgb 29.1 pg (27.0-32.0); Mean Corpuscular Volume 86.6 fL (81-99); Mean Platelet Vol. 9.5 fl (6.2-12.0); Monocyte# 0.44 X10^3/uL; Monocyte% 6.1 % (0-10); NRBC Flagged by Analyzer 0 % (0-5); Neutrophil # 5.34 X10^3/uL (2.7-7.7); Neutrophil % 74.1 % (47-70); Platelet Count 246 K/mm3 (150-450); RBC Distribution Width CV 12.2 % (11.6-14.6); RBC Distribution Width SD 38.5 fl (35.1-43.9); Red Blood Count 4.91 M/mm3 (4.2-5.4); White Blood Count 7.2 K/mm3 (4.4-11.0)
[2021-04-20 08:51] LABS: ALB/GLOB Ratio 0.7 RATIO (0.9-2.4); AST(SGOT) 25 U/L (15-37); Alanine Aminotransfer ALT/SGPT 30 U/L (13-56); Albumin, Serum 2.3 g/dL (3.2-5.0); Alkaline Phosphatase 54 U/L (45-117); Anion Gap 7 (5-15); BUN 21 mg/dL (7-18); BUN/Creat Ratio 41.4 RATIO (10-20); Calcium,Total 8.3 mg/dL (8.5-10.1); Chloride 104 mmol/L (98-107); Creatinine, Serum 0.51 mg/dL (0.55-1.02); EST Glomerular Filtration Rate 131 mL/min (>60); Est Glom Filt Rate - Afr Amer 158 mL/min (>60); Estimated Creatinine Clearance 100.03 ml/min; Globulin 3.4 g/dL (2.2-4.2); Glucose 188 mg/dL (74-106); Potassium 4.2 mmol/L (3.5-5.1); Protein, Total 5.7 g/dL (6.4-8.2); Sodium Level 138 mmol/L (136-145)
[2021-04-20] MEDS: guaiFENesin 1,200 MG Tablet 1200 MG PO ×2 (09:10→22:11)
[2021-04-20] MEDS: dexAMETHasone 4 MG Tablet 6 MG PO (09:11)
[2021-04-20] MEDS: Enoxaparin 30 MG/0.3 ML Syringe SC ×2 (09:12→22:11)
--- NOTE | 2021-04-20 14:39 | PN.HOSP_ITS ---
Subjective Subjective Follow-up on acute respiratory failure/COVID-19 pneumonia: Patient was seen and examined. She is currently on 8L oxygen. Denies any fever or chills. Objective Data Objective Data Vital Signs: Vital Signs Temp Pulse Resp BP Pulse Ox 98.1 F 77 18 112/76 92 04/20/21 09:04 04/20/21 09:04 04/20/21 09:04 04/20/21 09:04 04/20/21 09:04 Oxygen Flow Rate (L/min) 8 Oxygen Delivery Method High Flow Weight: 74.7 kg Body Mass Index (BMI) 28.3 Intake & Output: Intake and Output for Last 24 Hours 04/18/21 04/19/21 04/20/21 23:59 23:59 23:59 Intake Total 1080 / 1080 1000 / 1050 50 / 50 Output Total 400 / 400 Balance 680 / 680 1000 / 1050 50 / 50 Lab / Micro Data Result Diagrams: 04/20/21 06:40 04/20/21 06:40 Labs: Laboratory Results - last 24 hr 04/19/21 21:50: POC Glucose 303 H 04/20/21 06:40: WBC 7.2, RBC 4.91, Hgb 14.3, Hct 42.5, MCV 86.6, MCH 29.1, MCHC 33.6, RDW Std Deviation 38.5, RDW Coeff of Christian 12.2, Plt Count 246, MPV 9.5, Immature Gran % (Auto) 0.700, Neut % (Auto) 74.1 H, Lymph % (Auto) 18.4 L, [place] % (Auto) 6.1, Eos % (Auto) 0.4, Baso % (Auto) 0.3, Absolute Neuts (auto) 5.3, Ab solute Lymphs (auto) 1.33, Nucleated RBC % 0 04/20/21 06:40: Sodium 138, Potassium 4.2, Chloride 104, Carbon Dioxide 27.0, Anion Gap 7, BUN 21 H, Creatinine 0.51 L, Estim Creat Clear Calc 100.03, Est GFR (MDRD) Af Amer 158, Est GFR (MDRD) Non-Af 131, BUN/Creatinine Ratio 41.4 H, Glucose 188 H, Calcium 8.3 L, Total Bilirubin 0.40, AST 25, ALT 30, Alkaline Phosphatase 54, Total Protein 5.7 L, Albumin 2.3 L, Globulin 3.4, Albumin/Globulin Ratio 0.7 L Micro: Microbiology 04/16/21 10:15 Sputum, Expectorated/Coughed Gram Stain - Final 04/16/21 10:15 Sputum, Expectorated/Coughed Respiratory Culture - Final Beta strep non A Staphylococcus aureus 04/15/21 22:28 Blood Culture (Wb) - Anticubital Left Blood Culture - Preliminary No growth in 48 hours. 04/15/21 19:05 Blood Culture (Wb) - Anticubital Right Blood Culture - Preliminary No growth in 48 hours. 04/16/21 06:10 Urine, Clean Catch Legionella Antigen - Final 04/16/21 06:10 Urine, Clean Catch Streptococcus pneumoniae Antigen (M - [place] l Rhythm Strip Rhythm Strip: Sinus Rhythm Rate: 85 Ectopy: None Physical Exam Narrative GENERAL: Cooperative HEENT: Atraumatic; EYES; Anicteric, Normal Conjunctiva NECK; supple, normal thyroid, RESPIRATORY: Diminished to auscultation CARDIOVASCULAR: Regular S1 S2, GI: soft, normoactive bowel sounds, : No Renal angle tenderness; EXTREMITIES: No edema, no clubbing, MUSCULOSKELETAL: no muscle waisting NEURO: Awake; no lateralizing signs. SKIN: No Rash PSYCH; Flat affect Assessment & Plan Assessment/Plan (1) COVID-19: (2) Hypoxia: PLAN: 1. Acute hypoxic respiratory failure secondary to acute COVID-19 pneumonia Currently on 8 L of oxygen Continue dexamethasone, breathing treatments Completed Remdesivir Continue to wean off oxygen 2. Hyponatremia/hypokalemia, resolved 3. Type II DM, HbA1c is 11.6, BS is uncontrolled Will increase Lantus to 30 units QHS Continue with insulin sliding scale blood glucose checks Charges/Coding Visit Charges Inpatient E&M: 69322 Subs Hosp L2
[2021-04-20] MEDS: MELATONIN 3 MG TABLET PO (22:11)
[2021-04-20] MEDS: Acetaminophen 325 MG Tablet 650 MG PO (22:17)
[2021-04-21 00:11] LABS: Bedside Glucose 395 mg/dL (70-110)
[2021-04-21 04:23] VITALS: BP 136/82; PULSE 70; RESP 22; TEMP 36.8; O2SAT 97
[2021-04-21 07:15] VITALS: O2SAT 93
[2021-04-21 09:11] VITALS: BP 100/69; PULSE 71; RESP 18; TEMP 36.7; O2SAT 92
[2021-04-21] MEDS: Enoxaparin 30 MG/0.3 ML Syringe SC ×2 (09:21→21:44)
[2021-04-21] MEDS: Insulin Lispro 100 UNIT/ML INSULN.PEN SC ×4 (09:21→21:42)
[2021-04-21] MEDS: guaiFENesin 1,200 MG Tablet 1200 MG PO ×2 (09:22→21:42)
[2021-04-21] MEDS: dexAMETHasone 4 MG Tablet 6 MG PO (09:22)
[2021-04-21 10:21] LABS: Bedside Glucose 170 mg/dL (70-110)
[2021-04-21 11:30] VITALS: BP 106/72; PULSE 67; RESP 18; TEMP 36.6; O2SAT 95
[2021-04-21 12:56] LABS: Bedside Glucose 231 mg/dL (70-110)
--- NOTE | 2021-04-21 15:32 | PCM.PN.HOSP ---
Subjective Subjective Follow-up on acute respiratory failure/COVID-19 pneumonia: Patient was seen and examined. She is currently on 6-7 L oxygen. Denies any fever or chills. Objective Data Objective Data Vital Signs: Vital Signs Temp Pulse Resp BP Pulse Ox 97.8 F 67 18 106/72 95 04/21/21 11:30 04/21/21 11:30 04/21/21 11:30 04/21/21 11:30 04/21/21 11:30 Oxygen Flow Rate (L/min) 6.5 Oxygen Delivery Method High Flow Weight: 74.7 kg Body Mass Index (BMI) 28.3 Intake & Output: Intake and Output for Last 24 Hours 04/19/21 04/20/21 04/21/21 23:59 23:59 23:59 Intake Total 1000 / 1050 100 / 100 0 / 0 Balance 1000 / 1050 100 / 100 0 / 0 Lab / Micro Data Result Diagrams: 04/20/21 06:40 04/20/21 06:40 Labs: Laboratory Results - last 24 hr 04/20/21 22:01: POC Glucose 395 H 04/21/21 09:10: POC Glucose 170 H 04/21/21 12:27: POC Glucose 231 H Micro: Microbiology 04/15/21 22:28 Blood Culture (Wb) - Anticubital Left Blood Culture - Final No growth in 5 days. 04/15/21 19:05 Blood Culture (Wb) - Anticubital Right Blood Culture - Final No growth in 5 days. 04/16/21 10:15 Sputum, Expectorated/Coughed Gram Stain - Final 04/16/21 10:15 Sputum, Expectorated/Coughed Respiratory Culture - Final Beta strep non A Staphylococcus aureus 04/16/21 06:10 Urine, Clean Catch Legionella Antigen - Final 04/16/21 06:10 Urine, Clean Catch Streptococcus pneumoniae Antigen (M - Final Rhythm Strip Rhythm Strip: Sinus Rhythm Rate: 85 Ectopy: None Physical Exam Narrative Physical exam: General: Alert, Oriented x3, Cooperative, No apparent distress, on 6 L of oxygen HEENT: Atraumatic Oral: Moist Mucosa Neck: Supple Lungs: Clear to auscultation Cardiovascular: HS I+II, regular, no murmurs Abdomen: Bowel Sounds Present, Soft, Non Tender Extremities: No edema Assessment & Plan Assessment/Plan (1) COVID-19: (2) Hypoxia: PLAN: 1. Acute hypoxic respiratory failure secondary to acute COVID-19 pneumonia Currently on 6-7 L of oxygen Completed Remdesivir and decadron Continue to wean off oxygen 2. Hyponatremia/hypokalemia, resolved 3. Type II DM, HbA1c is 11.6, BS is uncontrolled Increase Lantus to 45 units QHS Continue with insulin sliding scale blood glucose checks Charges/Coding Visit Charges Inpatient E&M: 63943 Subs Hosp L2
[2021-04-21 16:30] LABS: Bedside Glucose 303 mg/dL (70-110)
[2021-04-21 16:45] VITALS: BP 105/65; PULSE 72; RESP 18; TEMP 36.6; O2SAT 95
[2021-04-21] MEDS: Furosemide 40 MG/4 ML Vial IV (16:49)
[2021-04-21] MEDS: 0.9% Saline Lock 10 ML Syringe IV (16:50)
[2021-04-21 21:50] VITALS: BP 107/69; PULSE 63; RESP 18; TEMP 37.2; O2SAT 94
[2021-04-21 22:26] LABS: Bedside Glucose 342 mg/dL (70-110)
[2021-04-22] VITALS (7 sets, daily range): BP systolic 87–114; BP diastolic 53–68; PULSE 53–77; RESP 18; TEMP 36.6–36.8; O2SAT 87–97
[2021-04-22 06:51] LABS: Bedside Glucose 101 mg/dL (70-110)
[2021-04-22] MEDS: Enoxaparin 30 MG/0.3 ML Syringe SC ×2 (12:05→21:41)
[2021-04-22] MEDS: guaiFENesin 1,200 MG Tablet 1200 MG PO ×2 (12:08→21:41)
[2021-04-22] MEDS: dexAMETHasone 4 MG Tablet 6 MG PO (12:08)
[2021-04-22] MEDS: Insulin Lispro 100 UNIT/ML INSULN.PEN SC ×3 (12:09→21:40)
--- NOTE | 2021-04-22 12:47 | PN.HOSP_ITS ---
Subjective Subjective Follow-up on acute respiratory failure/COVID-19 pneumonia: Patient was seen and examined. She is currently on 4 L oxygen. She however needs 6L on exertion. Denies any fever or chills. Objective Data Objective Data Vital Signs: Vital Signs Temp Pulse Resp BP Pulse Ox 97.9 F 73 18 87/54 L 92 04/22/21 11:55 04/22/21 11:55 04/22/21 11:55 04/22/21 11:55 04/22/21 11:55 Oxygen Flow Rate (L/min) [ 6 AMBULATING with Oxygen #3] Oxygen Flow Rate (L/min) [ 5 AMBULATING with Oxygen #2] Oxygen Flow Rate (L/min) [ 4 AMBULATING with Oxygen #1] Oxygen Flow Rate (L/min) [At 4 REST with Oxygen] Oxygen Flow Rate (L/min) 4 Oxygen Delivery Method Nasal Cannula Weight: 74.7 kg Body Mass Index (BMI) 28.3 Intake & Output: Intake and Output for Last 24 Hours 04/20/21 04/21/21 04/22/21 23:59 23:59 23:59 Intake Total 100 / 100 0 / 220 220 / 220 Output Total 0 / 0 Balance 100 / 100 0 / 220 220 / 220 Lab / Micro Data Result Diagrams: 04/20/21 06:40 04/20/21 06:40 Labs: Laboratory Results - last 24 hr 04/21/21 12:27: POC Glucose 231 H 04/21/21 16:21: POC Glucose 303 H 04/21/21 21:41: POC Glucose 342 H 04/22/21 06:42: POC Glucose 101 Micro: Microbiology 04/15/21 22:28 Blood Culture (Wb) - Anticubital Left Blood Culture - Final No growth in 5 days. 04/15/21 19:05 Blood Culture (Wb) - Anticubital Right Blood Culture - Final No growth in 5 days. 04/16/21 10:15 Sputum, Expectorated/Coughed Gram Stain - Final 04/16/21 10:15 Sputum, Expectorated/Coughed Respiratory Culture - Final Beta strep non A Staphylococcus aureus 04/16/21 06:10 Urine, Clean Catch Legionella Antigen - Final 04/16/21 06:10 Urine, Clean Catch Streptococcus pneumoniae Antigen (M - Final Rhythm Strip Rhythm Strip: Sinus Rhythm Rate: 85 Ectopy: None Physical Exam Narrative Physical exam: General: Alert, Oriented x3, Cooperative, No apparent distress, on 4 L of oxygen HEENT: Atraumatic Oral: Moist Mucosa Neck: Supple Lungs: Clear to auscultation Cardiovascular: HS I+II, regular, no murmurs Abdomen: Bowel Sounds Present, Soft, Non Tender Extremities: No edema Assessment & Plan Assessment/Plan (1) COVID-19: (2) Hypoxia: PLAN: 1. Acute hypoxic respiratory failure secondary to acute COVID-19 pne [place], slightly improved Currently on 4-6 L of oxygen Completed Remdesivir Continue on Decadron Continue to wean off oxygen 2. Hyponatremia/hypokalemia, resolved 3. Type II DM, HbA1c is 11.6, BS is better controlled Newly diagnosed DM Continue Lantus to 50 units QHS Continue with insulin sliding scale with blood glucose checks Charges/Coding Visit Charges Inpatient E&M: 52205 Subs Hosp L2
[2021-04-22 14:36] LABS: Bedside Glucose 275 mg/dL (70-110)
--- NOTE | 2021-04-22 15:09 | NS ---
[facility] information, Diabetes Plate Method Handout provided to patient at request of RN JOSEFINA. Recommend outpatient referral to [facility] for diabetes self management training when acute illness is resolved. Dayami Marquez MS, RDN, LD
--- NOTE | 2021-04-22 15:27 | CASEMGMT ---
KASSANDRA ROCHA NOTE: Anticipate pt will be ready for discharge tomorrow and will be going home on insulin, which is new for pt. KASSANDRA ROCHA to room to talk w/pt. She states she has a glucometer @ home that she ordered from [employer] and is getting low on test strips. She states she does not use them often for cost effectiveness. Pt made aware of [employer] brand of glucometers and cost of glucometer, lancets, and testing strips for all under $20 and recommended she do some rodriguez comparison to determine which brand would be more affordable. She states she is also concerned about cost of insulin @ d/c, as her [facility] insurance plan does not cover for rx's. KASSANDRA ROCHA informed her insulin vials are more affordable than pre-filled insulin pens and she states interested in going w/vials for cost effectiveness. Dr Spivey made aware. RNMalu, also made aware of need for insulin admin teaching and vials. KASSANDRA ROCHA to do rodriguez check on medications @ d/c. Carolee FORREST RN, CM
[2021-04-22 16:31] LABS: Bedside Glucose 308 mg/dL (70-110)
[2021-04-22] MEDS: Acetaminophen 325 MG Tablet 650 MG PO (22:16)
[2021-04-22] MEDS: MELATONIN 3 MG TABLET PO (22:25)
[2021-04-22 22:31] LABS: Bedside Glucose 261 mg/dL (70-110)
[2021-04-23] VITALS (7 sets, daily range): BP systolic 95–116; BP diastolic 55–71; PULSE 48–81; RESP 16–18; TEMP 36.4–36.8; O2SAT 86–98
[2021-04-23 06:41] LABS: Bedside Glucose 75 mg/dL (70-110)
[2021-04-23 07:32] LABS: Absolute Lymphocyte Count 1.26 X10^3/uL (0.83-4.51); Absolute Neutrophil Count 5.6 X10^3/uL (2.0-7.7); Basophil# 0.02 X10^3/uL; Basophil% 0.3 % (0-1); Eosinophil# 0.23 X10^3/uL; Eosinophils% 2.9 % (0-5); Hematocrit 43.1 % (37-47); Hemoglobin 14.5 g/dL (12.0-15.0); Lymphocyte # 1.26 X10^3/ul (0.83-4.51); Lymphocyte % 15.9 % (19-41); Mean Corp Hgb Conc 33.6 g/dL (32-36); Mean Corpuscular Hgb 29.1 pg (27.0-32.0); Mean Corpuscular Volume 86.4 fL (81-99); Monocyte# 0.75 X10^3/uL; Monocyte% 9.5 % (0-10); NRBC Flagged by Analyzer 0 % (0-5); Neutrophil # 5.57 X10^3/uL (2.7-7.7); Neutrophil % 70.5 % (47-70); Platelet Count 334 K/mm3 (150-450); RBC Distribution Width CV 12.2 % (11.6-14.6); RBC Distribution Width SD 38.6 fl (35.1-43.9); Red Blood Count 4.99 M/mm3 (4.2-5.4); White Blood Count 7.9 K/mm3 (4.4-11.0)
[2021-04-23 07:55] LABS: ALB/GLOB Ratio 0.5 RATIO (0.9-2.4); AST(SGOT) 15 U/L (15-37); Alanine Aminotransfer ALT/SGPT 29 U/L (13-56); Alkaline Phosphatase 50 U/L (45-117); Anion Gap 5 (5-15); BUN 25 mg/dL (7-18); Calcium,Total 8.7 mg/dL (8.5-10.1); Chloride 108 mmol/L (98-107); Creatinine, Serum 0.47 mg/dL (0.55-1.02); EST Glomerular Filtration Rate 142 mL/min (>60); Est Glom Filt Rate - Afr Amer 172 mL/min (>60); Estimated Creatinine Clearance 108.54 ml/min; Globulin 3.9 g/dL (2.2-4.2); Glucose 76 mg/dL (74-106); Protein, Total 5.9 g/dL (6.4-8.2); Sodium Level 140 mmol/L (136-145)
[2021-04-23] MEDS: guaiFENesin 1,200 MG Tablet 1200 MG PO (08:34)
[2021-04-23] MEDS: dexAMETHasone 4 MG Tablet 6 MG PO (08:34)
[2021-04-23] MEDS: Enoxaparin 30 MG/0.3 ML Syringe SC (08:35)
--- NOTE | 2021-04-23 09:40 | CASEMGMT ---
Addendum entered by Jalen Mercedes 04/23/21 10:29: Dr Spivey requests earlier appt @ PCP's office than 06/14, if possible. TC to Dr Wade's office. Az appt available is 05/11. Appt scheduled w/[employer] ENGINEER Sreedhar White for 05/11. Inquired if virtual visit could be done sooner. D/T pt is not established w/Dr Wade, they are unable to do virtual visit. TC to pt. Reviewed all appts w/her and questions answered. Pt aware RX for insulin and syringes have been e-scribed to [facility] and approx cost of insulin is $25/vial. She states this is affordable. Her will tack picker rx's and she also plans to have him tack picker a new Reli-[employer] glucometer w/testing supplies. Discussed Home O2 and instructions given. She confirms approx $200 for 30-day supply of O2 is affordable--made aware it may be more d/t higher O2 liter flow needed. She voices understanding. Questions answered. She has a pulse ox to monitor her oxygen levels. Pt states she feels comfortable administering her own insulin and will keep record of BS's. She denies having any other discharge planning needs or concerns at this time. Original Note: KASSANDRA ROCHA NOTE: Pt qualifies for O2 @ 4l/m @ rest and 6 l/m w/exertion. Script faxed to [employer]. Portable O2 tank taken from [facility] supply. TC to [facility] and made aware of O2 order, pt discharging home today, and that tank taken from [facility] supply. She states they do have a 10 l/m concentrator available and are able to provide O2 for pt. Carolee BSN KASSANDRA ROCHA
--- NOTE | 2021-04-23 10:01 | PCM.DC ---
Discharge Instructions Diet Discharge Diet: Low fat / Low cholesterol, 2000 mg Sodium Diet and Carb Control Diet Activity Discharge Activity: Return to Normal Activity Follow Up Care Test Results: Test results from this visit will be discussed in further detail at your follow-up appointment, if applicable. Discharge Plan Admission Admit Date/Time: 04/15/21 20:49 Primary Reason for Your Visit: Acute resp failure/Acute COVID-19 pneumonia Attending Provider: Irene Spivey Primary Care Provider: Care Physician,Tashia Primary Instructions Patient Instructions: Hypoglycemia (Low Blood Sugar), Blood Sugar Monitoring and ..., Hypoglycemia Steps Additional Instructions / Restrictions: You are being discharged with oxygen. Continue to use your oxygen all the time. Continue to use your incentive spirometer. Continue to remain active and eat healthy. Let your doctor know if you develop fever >101.3F or have progressive worsening shortness of breath. Follow-up with your primary care doctor to have your continued oxygen use reevaluated. Be careful of going near open flames whilst on oxygen. Complete your Decadron as prescribed. Continue to use your inhaler as needed for shortness of breath. Continue to quarantine for 20 days total from the start of your symptoms. Continue to check your blood sugars three times a day. Watch out for low blood sugars and symptoms of hypoglycemia. See patient instructions. Record your blood sugars three times a day. Follow a low calorie diet Discharge Orders/Prescriptions Prescriptions: New dexamethasone 4 mg Tablet 6 mg PO DAILY 3 Days Qty: 5 RF: 0 Mucus Relief ER 1,200 mg Tablet Extended Release 12hr 1,200 mg PO BID 7 Days Qty: 14 RF: 0 (DME) insulin syringes (disposable) 1 mL syringe See Rx Instructions .ROUTE .MEDSUPPLY Qty: 500 RF: 0 insulin NPH isoph U-100 human 100 unit/mL suspension 20 unit subcut BID Qty: 10 RF: 0 Referrals / Follow Up: Mauro Wade MD [STAFF PHYSICIAN] - 06/14/21 9:00 am Elliot Wade MD [STAFF PHYSICIAN] - (Will see CEO [employer] FOUNDER Sreedhar White. Appt is @ 2 PM. Arrive @ 1:30 PM. ) Janak Byrd MD [STAFF PHYSICIAN] - 06/28/21 1:00 pm (appointment with alejandra ponce np ) Care Physician,No Primary [Primary Care Provider] - Within 2 Weeks Disposition Disposition (needs filled in before D/C Order can be placed): Home, Self Care
--- NOTE | 2021-04-23 10:17 | DS.PCM_ITS ---
Providers Date of Admission: 04/15/21 Date of Discharge: 04/23/21 Primary Care Physician: No Primary Care Phys Reason For Visit: ACUTE HYPOXIC RESPIRATORY FAILURE SECONDARY TO Diagnosis Discharge Diagnosis (1) COVID-19: Status: Acute Code(s): U07.1 - COVID-19 (2) Hypoxia: Status: Acute Code(s): R09.02 - Hypoxemia Medications at Discharge Home Medications dexamethasone 6 mg PO DAILY 3 Days #5 tab 04/22/21 guaifenesin [Mucus Relief ER] 1,200 mg PO BID 7 Days #14 tab 04/22/21 insulin NPH isoph U-100 human 20 unit SUBCUT BID #10 ml 04/23/21 insulin syringes (disposable) #500 ea 04/23/21 Hospital Course Operations None Procedures None Summary of Care Provided Minutes Spent on Discharge: 45 Hospital Course: 60-year old female with no significant past medical history is who comes in with an 8-day history of generalized body aches, fever and shortness of breath. Patient had tested positive in the outpatient 03/17 0. She presented to the hospital with hypoxia with a pulse ox showing 81% on room air. Admitting chest x-ray showed bilateral infiltrates. Patient was started on dexamethasone and remdesivir. She had electrolyte imb alances that were replaced. Her blood sugars were found to be elevated during this hospital stay. HbA1c was 11.6. She was started on Lantus. Changes were made to Lantus on account of her steroids. Patient was discharged home on NPH not Lantus because of cost. She was given a primary care provider. Should follow-up with the nurse practitioner on 04/15 and then see primary care doctor later. She was educated on diabetes. She did qualify for oxygen at discharge. She will be on oxygen 4 L at rest and 6 L with exertion. She was encouraged to use any incentive spirometer. She will follow-up for further evaluation for continued oxygen requirements. Physical Exam Narrative Physical exam: General: Alert, Oriented x3, Cooperative, No apparent distress, on 4 L of oxygen HEENT: Atraumatic Oral: Moist Mucosa Neck: Supple Lungs: Clear to auscultation Cardiovascular: HS I+II, regular, no murmurs Abdomen: Bowel Sounds Present, Soft, Non Tender Extremities: No edema Weight / BMI Weight Weight: 74.7 kg Body Mass Index (BMI) 28.3 ABG / Lab / Microbiology Data Result Diagrams: 04/23/21 06:40 04/23/21 06:40 Laboratory: Laboratory Results - last 24 hr 04/22/21 11:52: POC Glucose 275 H 04/22/21 16:24: POC Glucose 308 H 04/22/21 21:33: POC Glucose 261 H 04/23/21 06:26: POC Glucose 75 04/23/21 06:40: WBC 7.9, RBC 4.99, Hgb 14.5, Hct 43.1, MCV 86.4, MCH 29.1, MCHC 33.6, RDW Std Deviation 38.6, RDW Coeff of Christian 12.2, Plt Count 334, MPV 10.0, Immature Gran % (Auto) 0.900, Neut % (Auto) 70.5 H, Lymph % (Auto) 15.9 L, [place] % (Auto) 9.5, Eos % (Auto) 2.9, Baso % (Auto) 0.3, Absolute Neuts (auto) 5.6, Absolute Lymphs (auto) 1.26, Nucleated RBC % 0 04/23/21 06:40: Sodium 140, Potassium 4.0, Chloride 108 H, Carbon Dioxide 27.0, Anion Gap 5, BUN 25 H, Creatinine 0.47 L, Estim Creat Clear Calc 108.54, Est GFR (MDRD) Af Amer 172, Est GFR (MDRD) Non-Af 142, BUN/Creatinine Ratio 53.0 H, Glucose 76, Calcium 8.7, Total Bilirubin 0.60, AST 15, ALT 29, Alkaline Phosphatase 50, Total Protein 5.9 L, Albumin 2.0 L, Globulin 3.9, Albumin/Globu jamey Ratio 0.5 L Microbiology: Microbiology 04/15/21 22:28 Blood Culture (Wb) - Anticubital Left Blood Culture - Final No growth in 5 days. 04/15/21 19:05 Blood Culture (Wb) - Anticubital Right Blood Culture - Final No growth in 5 days. 04/16/21 10:15 Sputum, Expectorated/Coughed Gram Stain - Final 04/16/21 10:15 Sputum, Expectorated/Coughed Respiratory Culture - Final Beta strep non A Staphylococcus aureus 04/16/21 06:10 Urine, Clean Catch Legionella Antigen - Final 04/16/21 06:10 Urine, Clean Catch Streptococcus pneumoniae Antigen (M - Final D/C Instructions Discharge Diet: Low fat / Low cholesterol, 2000 mg Sodium Diet and Carb Control Diet Meaningful Use Info Meaningful Use Diagnoses (Choose all that apply): None applicable Discharge Plan Admission Admit Date/Time: 04/15/21 20:49 Primary Reason for Your Visit: Acute resp failure/Acute COVID-19 pneumonia Attending Provider: Irene Spivey Primary Care Provider: Care Physician,No Primary Instructions Patient Instructions: Hypoglycemia (Low Blood Sugar), Blood Sugar Monitoring and ..., Hypoglycemia Steps Additional Instructions / Restrictions: You are being discharged with oxygen. Continue to use your oxygen all the time. Continue to use your incentive spirometer. Continue to remain active and eat healthy. Let your doctor know if you develop fever >101.3F or have progressive worsening shortness of breath. Follow-up with your primary care doctor to have your continued oxygen use reevaluated. Be careful of going near open flames whilst on oxygen. Complete your Decadron as prescribed. Continue to use your inhaler as needed for shortness of breath. Continue to quarantine for 20 days total from the start of your symptoms. Continue to check your blood sugars three times a day. Watch out for low blood sugars and symptoms of hypoglycemia. See patient instructions. Record your blood sugars three times a day. Follow a low calorie diet Discharge Orders/Prescriptions Prescriptions: New dexamethasone 4 mg Tablet 6 mg PO DAILY 3 Days Qty: 5 RF: 0 Mucus Relief ER 1,200 mg Tablet Extended Release 12hr 1,200 mg PO BID 7 Days Qty: 14 RF: 0 (DME) insulin syringes (disposable) 1 mL syringe See Rx Instructions .ROUTE .MEDSUPPLY Qty: 500 RF: 0 insulin NPH isoph U-100 human 100 unit/mL suspension 20 unit subcut BID Qty: 10 RF: 0 Referrals / Follow Up: Mauro Wade MD [STAFF PHYSICIAN] - 06/14/21 9:00 am Janak Byrd MD [STAFF PHYSICIAN] - 06/28/21 1:00 pm (appointment with alejandra ponce np ) Care Physician,No Primary [Primary Care Provider] - Within 2 Weeks Mauro Wade MD [[facility]] - 05/11/21 2:00 pm (Will see LUMBER TYING MACHINE OPERATOR Sreedhar White. Appt is @ 2 PM. Please arrive @ 1:30 PM. ) Disposition Disposition (needs filled in before D/C Order can be placed): Home, Self Care Charges/Coding Visit Charges Inpatient E&M: [id number] Disch Hosp
--- NOTE | 2021-04-23 11:25 | CASEMGMT ---
Social Work Note MAGDALENA reviewed chart. Pt newly diagnosed diabetic. SW spoke with pt regarding new diagnosis. Pt states she knew she had Diabetes, it is now just confirmed. Pt states she used to have it under control by eating well but states she has not been eating properly. Pt states she had a cat that she had to give insulin too so she knows how to give shots. Pt states she has been educated on insulin and knows what she is supposed to do. Pt states that she has support at home. Pt states it is a new adventure. Pt states she is also relieved that she got the diagnosis because she states she knew she had before being diagnosed. Pt states though that she is disappointed though in the diagnosis as well. SW offered support to pt. Pt denied additional needs or concerns at this time. Sarah Beth Astorga PRESALES CONSULTANT, DATA STORAGE SPECIALIST
[2021-04-23] MEDS: Insulin Lispro 100 UNIT/ML INSULN.PEN SC (11:44)
[2021-04-23 12:15] LABS: Bedside Glucose 371 mg/dL (70-110)
== END 2021-04-23 12:40 | disposition home or self-care (01) | DRG 177 ==
LOC: ED 20:32 → MS3 21:45
PROVIDERS: Internal Medicine; Admitting Provider Internal Medicine; Emergency Provider Emergency Medicine; Referring Provider Internal Medicine; Visit Provider Internal Medicine
DX: U07.1 COVID-19 (principal); J96.01 Acute respiratory failure with hypoxia; J12.82 Pneumonia due to coronavirus disease 2019; E87.1 Hypo-osmolality and hyponatremia; E87.8 Other disorders of electrolyte and fluid balance, not elsewhere classified; E87.6 Hypokalemia; E11.65 Type 2 diabetes mellitus with hyperglycemia
CPT/HCPCS: 36415; 71045; 71275; 80048; 80053; 80076; 82550; 82962; 83036; 83605; 83615; 83735; 83880; 84145; 84484; 85025; 85379; 85384; 85610; 86140; 87040; 87070; 87077; 87186; 87205; 87449; 87635; 93005; 94640; 94667; 94668; 94760; 94762; 99251; 99284; J7030; J7050; Q9967; U0005; A4216; G0463; J1940; U0003